=== PATIENT | male | born 2000 ===

== ENCOUNTER 2020-12-20 16:06 | Emergency (ER) | payer OTHER ==
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
[2020-12-20] MEDS ORDERED: Sodium Chloride 0.9% 10 ML Syringe FLUSH PRN (16:15)
[2020-12-20] MEDS ORDERED: Lactated Ringers 1,000 ML IV ONE (16:16)
[2020-12-20] MEDS ORDERED: Iopamidol 612 MG/ML 100 ML Bottle IVPUSH ONE (16:17)
[2020-12-20] MEDS ORDERED: Iopamidol 612 MG/ML 50 ML SDV IVPUSH ONE (16:17)
[2020-12-20] MEDS ORDERED: Ondansetron 4 MG/2 ML SDV IV ONE ×2 (16:17→17:00)
--- NOTE | 2020-12-20 16:37 | CT ---
PROCEDURE INFORMATION: Exam: CT Cervical Spine Without Contrast Exam date and time: 12/20/2020 4:22 PM Age: 20 years old Clinical indication: Other: Trauma: Neck pain TECHNIQUE: Imaging protocol: Computed tomography images of the cervical spine without contrast. Radiation optimization: All CT scans at this facility use at least one of these dose optimization techniques: automated exposure control; mA and/or kV adjustment per patient size (includes targeted exams where dose is matched to clinical indication); or iterative reconstruction. COMPARISON: No relevant prior studies available. FINDINGS: Bones/joints: Thickening of the anterior epidural space up to 6 mm posterior to the C4 vertebral body. MRI is recommended for further evaluation to exclude epidural hematoma in this patient with trauma. No compressions. Normal alignment. Discs/Spinal canal/Neural foramina: No significant disc protrusion. No severe spinal canal stenosis. No significant neural foraminal narrowing. Lungs: Lung apices are normal. Soft tissues: Unremarkable. IMPRESSION: Thickening of the anterior epidural space up to 6 mm posterior to the C4 vertebral body. MRI is recommended for further evaluation to exclude epidural hematoma in this patient with trauma.
[2020-12-20 16:51] LABS: ANION GAP 10.9 mEq/L (7-13); CHLORIDE,CL 104 mmol/L (98-107); SODIUM,NA 140 mmol/L (136-145)
[2020-12-20 16:59] LABS: PTT,PARTIAL THROMBOPLSTIN TIME 28.1 SEC (22.0-34.0)
[2020-12-20] MEDS ORDERED: fentaNYL 100 MCG/2 ML SDV IVPUSH ONE (16:59)
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
[2020-12-20 17:47] LABS: AMPHETAMINES,URINE NEGATIVE (NEGATIVE); BARBITURATES,URINE NEGATIVE (NEGATIVE); BENZODIAZEPINE,URINE POSITIVE (NEGATIVE); MDMA (ECSTASY), URINE NEGATIVE (NEGATIVE); METHADONE,URINE NEGATIVE (NEGATIVE); METHAMPHETAMINES,URINE NEGATIVE (NEGATIVE); OPIATES,URINE NEGATIVE (NEGATIVE); OXYCODONE,URINE NEGATIVE (NEGATIVE); PHENCYCLIDINE,URINE NEGATIVE (NEGATIVE); TCA,URINE NEGATIVE (NEGATIVE)
== END 2020-12-20 18:05 ==
LOC: DL.ED 16:06
DX: S14.101A Unspecified injury at C1 level of cervical spinal cord, initial encounter (principal); E66.9 Obesity, unspecified; Z68.30 Body mass index [BMI] 30.0-30.9, adult; V83.0XXA Driver of special industrial vehicle injured in traffic accident, initial encounter; Y92.410 Unspecified street and highway as the place of occurrence of the external cause
CPT/HCPCS: 36415; 70450; 71260; 72125; 72128; 72131; 74177; 80053; 80305-QW; 80307; 81001; 82150; 82947; 83690; 84484; 85025; 85610; 85730; 96374; 99285; 99285-25; J7120; Q9967